=== PATIENT | female | born 1970 | race Caucasian/White ===

== ENCOUNTER → 2024-02-06 08:41 | Outpatient (REF) | payer OTHER, SELFPAY | LOC: RCS 08:41 | PROVIDERS: ATTENDING PHYSICIAN Orthopaedic Surgery | DX: Z01.818 Encounter for other preprocedural examination (principal) | CPT/HCPCS: 93005 ==

== ENCOUNTER → 2024-07-14 13:37 | Outpatient (REF) | payer OTHER, SELFPAY | LOC: RAD 13:37 | PROVIDERS: ATTENDING PHYSICIAN Physician Assistant | DX: M79.661 Pain in right lower leg (principal); M79.89 Other specified soft tissue disorders | CPT/HCPCS: 93971 ==

== ENCOUNTER 2024-12-25 09:15 | Emergency (ER) | payer OTHER, SELFPAY ==
[2024-12-25 09:18] VITALS: BP 143/96
--- NOTE | 2024-12-25 09:48 | ED.GENMED ---
History of Present Illness
General
Chief Complaint: Head Injury
Source: patient
Exam Limitations: none
Time Seen by Provider: 12/25/24 09:43
History of Present Illness
History of Present Illness:
54-year-old female presents for evaluation of head injury. She woke up this morning after a night of drinking with a bump on the back of her head. She is unsure how it got there. She notes slight nausea but denies neck pain. She is not
anticoagulated. She has a history of fibromyalgia and GERD. No other complaints at this time.
Past History
Past History
ED Past Medical History: Fibromyalgia, GERD, Psychiatric (Anxiety) and Other (Kidney stones, migraine headaches)
ED Past Surgical History: Cholecystectomy, Gynecological, Orthopedic and Other (Umbilical hernia repair)
Social History
Tobacco: Non-smoker
Alcohol: Occasional (Moderate social alcohol use)
Personal: Single
Living: alone
Employment: Employed
Family History
Family History: Other (Noncontributory)
Phy Exam
Physical Exam
Physical Exam:
General: Well-appearing female no acute distress
HEENT normocephalic hematoma noted left occipital scalp. Pupils equal round react light TMs normal
Neurologic exam: Alert and oriented conversing appropriately normal gait
Musculoskeletal exam: The spine is nontender
Course
Orders/Labs/Results
Orders:
Orders
12/25/24 09:48
CT Head W/o Iv Contrast Urgent
Comment:
Reason For Exam: head injury
Vital Signs
Initial and Last Documented VS:
Initial Vital Signs
Temp Pulse Resp BP Pulse Ox
97.9 F 88 16 143/96 98
12/25/24 09:18 12/25/24 09:18 12/25/24 09:18 12/25/24 09:18 12/25/24 09:18
Last Documented Vital Signs
Temp Pulse Resp BP Pulse Ox
97.9 F 88 16 143/96 98
12/25/24 09:18 12/25/24 09:18 12/25/24 09:18 12/25/24 09:18 12/25/24 09:18
MDM/Problems Addressed
Differential Diagnosis Includes:
Head injury. Contusion to scalp. Other items on differential could include skull fracture versus intracranial hemorrhage. Patient does not recall the event. Admits to drinking last night. Given the uncertainty of the mechanism with evidence of
trauma CT of the head is pending
*Critical Care Note
Total Time (30-74mins, 75-104mins- exclusive of procedures): Not Applicable
Update Note
Update Note:
CT head negative for acute intracranial finding or fracture. Patient reassured. I suspect contusion. Stable for discharge
ED Attending Note
-
Portions of this chart may have been created with voice recognition software.� Occasional wrong word or��sound alike� substitutions may have occurred due to the inherent limitations of voice recognition software.
Discharge Plan
Departure
Patient Disposition: Home (Routine Discharge)
Date of Disposition: 12/25/24
Time of Disposition: 10:39
Patient with high blood pressure during this ER visit?: No
Discharge Problem:
Contusion
Instructions: Contusion (DC)
Prescriptions:
No Action
alprazolam 0.5 MG tablet
0.5 - 1 mg PO HSPRN PRN (Reason: sleep)
omeprazole [Prilosec] 20 MG capsule,delayed release(DR/EC)
20 mg PO DAILY
fluoxetine 20 MG capsule
20 mg PO DAILY
Biaxin
1 tab PO BID
cholecalciferol (vitamin D3) 1,250 mcg (50,000 unit) Capsule
1,250 mcg PO QWEEK
ascorbic acid (vitamin C) [Vitamin C] 500 MG tablet
1,000 mg PO DAILY
amoxicillin-pot clavulanate 875-125 mg tablet
1 tab PO BID Qty: 20 0RF
Referrals:
Hayley Núñez, DO [Family Provider] -
Activity Restrictions/Additional Instructions:
You may apply ice to the area. Take Tylenol if needed for pain. Return if worse otherwise follow-up with your doctor if needed
Interventions
Interventions:
*Risk Screen - Suicide Last Done: 12/25/24 09:18
*General Assessment Last Done: 12/25/24 09:27
*Neglect/Abuse Screening Last Done: 12/25/24 09:18
*ED COVID-19 Vaccine History Last Done: 12/25/24 09:27
ED- Neurological Assessment Last Done: 12/25/24 09:27
ED-Skin Assessment Last Done: 12/25/24 09:27
Discharge Date and Time
Print Language: DANISH
== END 2024-12-25 10:50 | disposition home or self-care (01) ==
LOC: EMR 09:15
PROVIDERS: EMERGENCY PHYSICIAN Emergency Medicine; FAMILY PHYSICIAN Family Medicine
DX: S00.03XA Contusion of scalp, initial encounter (principal); X58.XXXA Exposure to other specified factors, initial encounter; M79.7 Fibromyalgia; F41.9 Anxiety disorder, unspecified; K21.9 Gastro-esophageal reflux disease without esophagitis; Z87.442 Personal history of urinary calculi; Z90.49 Acquired absence of other specified parts of digestive tract
CPT/HCPCS: 99284; 70450

== ENCOUNTER → 2025-01-10 14:01 | Outpatient (REF) | payer OTHER, SELFPAY | LOC: WDC 14:01 | PROVIDERS: ATTENDING PHYSICIAN Nurse Practitioner Adult Health; FAMILY PHYSICIAN Family Medicine | DX: R92.8 Other abnormal and inconclusive findings on diagnostic imaging of breast (principal) | CPT/HCPCS: 76642 ==

== ENCOUNTER → 2025-02-15 10:11 | Outpatient (REF) | payer OTHER, SELFPAY | LOC: WDC 10:11 | PROVIDERS: ATTENDING PHYSICIAN Nurse Practitioner Adult Health; FAMILY PHYSICIAN Family Medicine | DX: R92.8 Other abnormal and inconclusive findings on diagnostic imaging of breast (principal); Z80.3 Family history of malignant neoplasm of breast | CPT/HCPCS: 77062; 77066 ==

== ENCOUNTER → 2025-03-09 10:40 | Outpatient (REF) | payer OTHER, SELFPAY | LOC: MRI 10:40 | PROVIDERS: ATTENDING PHYSICIAN Surgery; FAMILY PHYSICIAN Family Medicine | DX: R92.8 Other abnormal and inconclusive findings on diagnostic imaging of breast (principal) | CPT/HCPCS: 77049; A9585 ==

== ENCOUNTER → 2025-06-30 13:27 | Outpatient (REF) | payer OTHER, SELFPAY | LOC: MRI 3T 13:27 | PROVIDERS: ATTENDING PHYSICIAN Nurse Practitioner Adult Health; FAMILY PHYSICIAN Family Medicine | DX: R92.8 Other abnormal and inconclusive findings on diagnostic imaging of breast (principal) | CPT/HCPCS: 77049; A9585 ==